=== PATIENT | female | born 1975 | race African-American/Black ===

== ENCOUNTER → 2020-08-29 09:44 | Outpatient (CLI) | payer BC, SELFPAY | PROVIDERS: Referring Provider Physician Assistant; Visit Provider Family Medicine | DX: T24.232A Burn of second degree of left lower leg, initial encounter (principal); L08.9 Local infection of the skin and subcutaneous tissue, unspecified; G89.18 Other acute postprocedural pain | CPT/HCPCS: 16020; 87070; 87075; 87077; 87147; 87186; 87205; 99203; 99214 ==

== ENCOUNTER → 2020-09-05 10:06 | Outpatient (CLI) | payer BC, SELFPAY | PROVIDERS: Referring Provider Emergency Medicine; Visit Provider Family Medicine | DX: T24.232A Burn of second degree of left lower leg, initial encounter (principal); B95.7 Other staphylococcus as the cause of diseases classified elsewhere; Z79.2 Long term (current) use of antibiotics | CPT/HCPCS: 16020; 99212 ==

== ENCOUNTER → 2020-09-13 11:47 | Outpatient (CLI) | payer BC, SELFPAY | PROVIDERS: Referring Provider Emergency Medicine; Visit Provider Family Medicine | DX: T24.232A Burn of second degree of left lower leg, initial encounter (principal) | CPT/HCPCS: 16020 ==

== ENCOUNTER → 2020-09-27 12:21 | Outpatient (CLI) | payer BC, SELFPAY | PROVIDERS: Referring Provider Emergency Medicine; Visit Provider Family Medicine | DX: T24.232A Burn of second degree of left lower leg, initial encounter (principal) | CPT/HCPCS: 16020 ==

== ENCOUNTER → 2020-10-05 14:14 | Outpatient (CLI) | payer BC, SELFPAY | PROVIDERS: Visit Provider Family Medicine | DX: T24.232D Burn of second degree of left lower leg, subsequent encounter (principal) | CPT/HCPCS: 99212 ==

== ENCOUNTER 2022-07-03 13:08 | Emergency (ER) | payer BC, SELFPAY ==
[2022-07-03 13:25] VITALS: BP 162/88; PULSE 76; RESP 16; TEMP 36.1; O2SAT 100; BMI 34.0
--- NOTE | 2022-07-03 13:32 | DI.RAD.S_ITS ---
PROCEDURE: XR RIBS RT MIN 3V W CXR 1V INDICATIONS: Fall right rib and chest pain TECHNIQUE: 3 views of the right ribs were acquired, along with a single view chest. COMPARISON: None. FINDINGS: Surgical changes and devices: None. Bones and chest wall: There are mildly displaced lateral right 7th and 8th rib fractures. Lungs and pleura: No pleural effusions or pneumothorax. Lungs appear clear. Mediastinum: Mediastinal contours appear normal. Heart size is normal. IMPRESSION: Lateral right 7th and 8th rib fractures. Dictated by: Christina Iverson M.D. on 07/03/2022 at 14:33 Approved by: Christina Iverson M.D. on 07/03/2022 at 14:34
--- NOTE | 2022-07-03 15:12 | ED_ITS ---
HPI - Fall <LAURO Healy - Last Filed: 07/03/22 15:27> General Chief Complaint: Fall Stated Complaint: fell rt. rib pain Time Seen by Provider: 07/03/22 15:02 Mode of arrival: Family Vehicle History of Present Illness HPI Narrative: This is a 47-year-old female who presents to the emergency department for right- sided rib pain after a mechanical fall on 06/28/2022 while she was trying to kill a spider. Patient denies any shortness of breath, wheezing, chest pain, difficulty breathing. She endorses muscle spasms in her back, states that her pain is midthoracic on the lateral aspect of her right ribs. Patient denies any abdominal pain, nausea vomiting, denies any open wound. Denies taking any pain medication today. She states that she is left handed and works as a kitchen utility associate. Related Data Previous Rx's Medication Instructions Recorded hydrocodone 5 mg-acetaminophen 325 1 tab PO Q8H PRN pain #14 tabs 07/03/22 mg tablet ketorolac 10 mg tablet 10 mg PO TID PRN pain 5 days #20 07/03/22 tabs lidocaine 5 % topical patch 1 patch topical DAILY PRN pain #15 07/03/22 (Lidoderm) ea methocarbamol 500 mg tablet 500 mg PO TID PRN muscle spasm #20 07/03/22 tabs Allergies Allergy/AdvReac Type Severity Reaction Status Date / Time No Known Drug Allergies Allergy Verified 07/03/22 13:32 Review of Systems <LAURO Healy - Last Filed: 07/03/22 15:27> Review of Systems Narrative: Review of systems is negative for acute abnormalities unless otherwise noted in HPI Patient History <LAURO Healy - Last Filed: 07/03/22 15:27> Social History Smoking Status: Current some day smoker Smoking Status: Current some day smoker alcohol intake frequency: 0-2 drinks per day Substance Use Type: does not use Exam <LAURO Healy - Last Filed: 07/03/22 15:27> Narrative Exam Narrative: Reviewed vitals signs and nursing notes. General: cooperative, uncomfortable, in no acute distress, well groomed, sitting upright and bracing her right middle/lateral ribs HEENT: symmetrical facial expressions, moist mucous membranes Cardiovascular: regular rate and rhythm, no peripheral edema, warm extremities Respiratory: normal effort, able to speak in complete sentences, without wheezing, stridor, or abnormal breath sounds. No retractions or tachypnea. No abnormal breath sounds, good air movement, equal excursions GI: abdomen soft, nontender to palpation, nondistended, without masses, rebound tenderness or exquisite tenderness with exam. MSK: moves all extremities, neurovascularly intact, no weakness, normal tone Skin: brisk capillary refill, without pallor or erythema Neuro: normal speech and cognition, A&O x3, ambulatory, clear speech Psych: mental status is grossly normal, congruent mood, normal affect, pleasant and cooperative Initial Vital Signs Initial Vital Signs: Vital Signs Temperature 97 F L 07/03/22 13:25 Pulse Rate 76 07/03/22 13:25 Respiratory Rate 16 07/03/22 13:25 Blood Pressure 162/88 H 07/03/22 13:25 Pulse Oximetry 100 07/03/22 13:25 Oxygen Delivery Method 07/03/22 13:25 <Shreya Tafoya DO - Last Filed: 07/06/22 08:48> Initial Vital Signs Initial Vital Signs: Vital Signs Temperature 97 F L 07/03/22 13:25 Pulse Rate 76 07/03/22 13:25 Respiratory Rate 16 07/03/22 13:25 Blood Pressure 162/88 H 07/03/22 13:25 Pulse Oximetry 100 07/03/22 13:25 Oxygen Delivery Method 07/03/22 13:25 Course <LAURO Healy - Last Filed: 07/03/22 15:27> Orders Ordered: Discontinued Medications Hydrocodone Bitart/Acetaminophen (Hydrocodone/Acet 5/325 Tablet) 1 tab PO NOW ONE Stop: 07/03/22 15:13 Last Admin: 07/03/22 15:21 Dose: 1 tab Documented By: THEA Ketorolac Tromethamine (Ketorolac 30 Mg/Ml Vial) 15 mg IM NOW ONE Stop: 07/03/22 15:13 Last Admin: 07/03/22 15:20 Dose: 15 mg Documented By: THEA Lidocaine (Lidocaine Patch 1 Each Adh..Patch) 1 each TOP NOW ONE Stop: 07/03/22 15:13 Last Admin: 07/03/22 15:22 Dose: 1 each Documented By: THEA Methocarbamol (Methocarbamol 500 Mg Tablet) 500 mg PO NOW ONE Stop: 07/03/22 15:13 Last Admin: 07/03/22 15:21 Dose: 500 mg Documented By: THEA Vital Signs Vital signs: Vital Signs - 8 hr 07/03/22 13:25 Temperature 97 F L Pulse Rate 76 Respiratory Rate 16 Blood Pressure 162/88 H Pulse Oximetry 100 Oxygen Delivery Method Room Air <Shreya Tafoya DO - Last Filed: 07/06/22 08:48> Orders Ordered: Discontinued Medications Hydrocodone Bitart/Acetaminophen (Hydrocodone/Acet 5/325 Tablet) 1 tab PO NOW ONE Stop: 07/03/22 15:13 Last Admin: 07/03/22 15:21 Dose: 1 tab Documented By: THEA Ketorolac Tromethamine (Ketorolac 30 Mg/Ml Vial) 15 mg IM NOW ONE Stop: 07/03/22 15:13 Last Admin: 07/03/22 15:20 Dose: 15 mg Documented By: THEA Lidocaine (Lidocaine Patch 1 Each Adh..Patch) 1 each TOP NOW ONE Stop: 07/03/22 15:13 Last Admin: 07/03/22 15:22 Dose: 1 each Documented By: THEA Methocarbamol (Methocarbamol 500 Mg Tablet) 500 mg PO NOW ONE Stop: 07/03/22 15:13 Last Admin: 07/03/22 15:21 Dose: 500 mg Documented By: THEA Vital Signs Vital signs: Vital Signs - 8 hr 07/03/22 13:25 Temperature 97 F L Pulse Rate 76 Respiratory Rate 16 Blood Pressure 162/88 H Pulse Oximetry 100 Oxygen Delivery Method Room Air MDM - Fall <LAURO Helay - Last Filed: 07/03/22 15:27> Imaging Data right ribs: Radiologist's Impression: PROCEDURE:? XR RIBS RT MIN 3V W CXR 1V ? INDICATIONS:? Fall right rib and chest pain ? TECHNIQUE:? 3 views of the right ribs were acquired, along with a single view chest.? ? COMPARISON:? None. ? FINDINGS:? ? Surgical changes and devices:? None.? ? Bones and chest wall:? There are mildly displaced lateral right 7th and 8th rib fractures. ? Lungs and pleura:? No pleural effusions or pneumothorax.? Lungs appear clear.? ? Mediastinum:? Mediastinal contours appear normal.? Heart size is normal.? ? IMPRESSION:? Lateral right 7th and 8th rib fractures. ? ? Dictated by: Christina Iverson M.D. on 07/03/2022 at 14:33 ? ? Approved by: Christina Iverson M.D. on 07/03/2022 at 14:34 ? MDM Narrative Medical decision making narrative: This is a 47-year-old female presents to the emergency department complaining of right-sided rib pain after a fall on 06/28/2022 and her son's bedroom onto her right side. X-ray of patient's right rib shows lateral mildly displaced rib fractures of rib numbers 7 and 8. Patient is without any shortness of breath, chest pain hypoxia, tachypnea, increased respiratory effort or other. She was treated with Toradol, methocarbamol, hydrocodone, lidocaine patch and given an incentive spirometer and taught how to use it. Encouraged her to rest, use ice and a topical modality for her pain along with an anti-inflammatory and hydrocodone as needed for breakthrough pain. She was given prescriptions methocarbamol, hydrocodone, lidocaine patches and ketorolac p.o.. Encouraged to stay hydrated, take her medications with food and water and to go to the emergency department for any shortness of breath, worsening pain, difficulty breathing. Discouraged the use of long-term rib binders due to atrophy and increased incidence of pneumonia. Patient is appropriate and amenable to discharge home. Vital signs are stable on repeat examination is unremarkable. Patient has been informed of results. Patient has been given strict return to ER precautions for any new or worsening symptoms. Patient understands to follow up closely with outpatient providers as instructed. Patient understands plan and agrees to discharge home. All questions and concerns answered at this time. Discharge Plan Departure Patient Disposition: Home Clinical Impression: Closed rib fracture Qualifiers: Encounter type: initial encounter Rib fracture type: multiple ribs Laterality: right Qualified Code(s): S22.41XA - Multiple fractures of ribs, right side, initial encounter for closed fracture Instructions: Rib Fracture Activity Restrictions/Additional Instructions: *You have been diagnosed with right-sided rib fractures numbers 7 and 8 with mild displacement. These should not need surgical intervention but due to the location this will be quite painful. I typically discourage use of an abdominal or rib binder because it cause atrophy of the muscles and increase the risk of pneumonia. But some people report that they can function better at work if they have to go to work with something even as simple as an Jose bandage around this area pain can help. I would encourage you to use it only for shorter periods of time. I have sent a medications for you to [facility] in [place], please remember to not lay in bed, get up and move around, try to not have any further injury of that side while it is healing as best as able. I am sorry for your pain, please take the ketorolac with food and water, I hope you have a nice [place] vacation and if you develop any shortness of breath or any concerning symptoms please go to the emergency department whereever you are. *What to do: *Please continue to take your regular medications as directed. [ x] New medication prescriptions sent to your pharmacy: [[facility] ] [ ] New medication written as a paper prescription [ ] No new medications given *Please follow up with your primary care provider in 2-3 days, call for an appointment. Let them know you were seen in the Emergency Department and that we asked that you be seen for follow-up. We will electronically transmit a record of today's note if your PCP is in our system *If you do not have a primary care provider please contact [phone] to establish care with one of the [facility] primary care providers. *Return to Emergency Department if you should have any new, worsening, or concerning symptoms, such as [fever greater than 101F, chills, worsening pain, persistent vomiting or other bothersome symptoms]. Prescriptions: New ketorolac 10 mg tablet 10 mg PO TID PRN (Reason: pain) 5 Days Qty: 20 0RF lidocaine [Lidoderm] 5 % adhesive patch,medicated 1 patch topical DAILY PRN (Reason: pain) Qty: 15 0RF Rx Instructions: leave on most painful area for up to 12 hrs methocarbamol 500 mg tablet 500 mg PO TID PRN (Reason: muscle spasm) Qty: 20 0RF hydrocodone-acetaminophen 5-325 mg tablet 1 tab PO Q8H PRN (Reason: pain) Qty: 14 0RF Referrals: [facility] [Provider Group] Miscellaneous,Doctor, [Primary Care Provider] - Visit Report Forms: Patient Portal/API <Shreya Tafoya DO - Last Filed: 07/06/22 08:48> Cosign ED Attending Melvi Attestation: I was immediately available in the department for consultation. Documentation has been reviewed.
[2022-07-03] MEDS: KETOROLAC 30 MG/ML VIAL 15 MG IM (15:20)
[2022-07-03] MEDS: methocarbamoL 500 MG TABLET PO (15:21)
[2022-07-03] MEDS: HYDROCODONE/ACET 5/325 TABLET 1 TAB PO (15:21)
[2022-07-03] MEDS: LIDOCAINE PATCH 1 EACH ADH..PATCH TOP (15:22)
== END 2022-07-03 15:31 | disposition home or self-care (01) ==
PROVIDERS: Emergency Provider Nurse Practitioner Critical Care Medicine
DX: S22.41XA Multiple fractures of ribs, right side, initial encounter for closed fracture (principal); W19.XXXA Unspecified fall, initial encounter
CPT/HCPCS: 71101; 96372; 99283; J1885